=== PATIENT | female | born 1960 | race Caucasian/White ===

== ENCOUNTER 2018-12-01 21:30 | Emergency (ER) | payer MEDICAID ==
[2018-12-01] MEDS ORDERED: Sodium Chloride 0.9% 1,000 ML IV ONE (22:30)
--- NOTE | 2018-12-01 22:37 | ED PDOC ---
HPI: Skin/Bite Injury Time Seen by Provider: 12/01/18 21:57 Chief Complaint (Nursing): Abnormal Skin Integrity Chief Complaint (Provider): Facial Swelling, Congestion History Per: Patient History/Exam Limitations: no limitations Onset/Duration Of Symptoms: Hrs (left sided facial swelling since this AM), Days (congestion since 11/29/18) Current Symptoms Are (Timing): Still Present Quality Of Symptoms: Painful, Swollen Severity: Moderate Additional Complaint(s): Patient is a 57 year old female who presents to the ED for evaluation of nasal congestion since 11/29/18, and left sided facial swelling since this mo rning upon waking. Patient reports that the swelling has worsened throughout the day and is rated 9/10, localized. Patient denies any other symptoms. Patient last took Tylenol 3 hours ago. Patient also notes that she is currently on an unknown antibiotic x3 days for a UTI. Denies fevers, chills, SOB, cough, ear pain, throat pain, headache, dizziness, neck pain/stiffness, recent dental work. PMD: unknown Tetanus: unknown Past Medical History Reviewed: Historical Data, Nursing Documentation, Vital Signs Vital Signs: Last Vital Signs Temp 99.6 F 12/01/18 21:53 Pulse 60 12/01/18 21:53 Resp 16 12/01/18 21:53 BP 115/69 12/01/18 21:53 Pulse Ox 96 12/01/18 21:53 - Medical History PMH: No Chronic Diseases - Surgical History Other surgeries: Breast Implants - Family History Family History: States: Unknown Family Hx - Social History Current smoker - smoking cessation education provided: No Alcohol: None Drugs: Denies - Immunization History Hx Tetanus Toxoid Vaccination: No - Allergies Allergies/Adverse Reactions: Allergies Allergy/AdvReac Type Severity Reaction Status Date / Time No Known Allergies Allergy Verified 12/01/18 21:55 Review of Systems ROS Statement: Except As Marked, All Systems Reviewed And Found Negative Constitutional: Positive for: Other (left sided facial swelling) ENT: Positive for: Nose Congestion Physical Exam - Reviewed Nursing Documentation Reviewed: Yes Vital Signs Reviewed: Yes - Physical Exam Comments: GENERALIZED APPEARANCE: Patient is awake, alert, oriented x3 in no acute distress. Uncomfortable appearing. VITAL SIGNS: Per nurse's note, reviewed by me. SKIN: Warm, dry; (-) cyanosis.(+)7cm x 7cm area of warmth, swelling, tenderness and erythema of left cheek/maxilla extending to the angle of the mandible. (-) fluctuance, (+) induration EYES: (-) conjunctival injection (+) left infraorbital tenderness. EOMI and painless. Pupils equal and reactive. (-) crusting (-) hyphema (-) chemosis ENMT: Mucous membranes moist. Airway patent, (-) stridor. Dentition nontender. Pharynx: clear, uvula midline (-) erythema. NECK:Supple, FROM (-) tenderness, (-) stiffness. CHEST AND RESPIRATORY: (-) rales, (-) rhonchi, (-) wheezes; breath sounds equal bilaterally. Respirations even and nonlabored. HEART AND CARDIOVASCULAR: (-)irregularity NEURO AND PSYCH: Mental status as above; (-) focal findings. Gait: steady. Speech: clear. (-) aphasia. Normal cognition. - Laboratory Results Result Diagrams: 12/01/18 22:45 12/01/18 22:45 - ECG O2 Sat by Pulse Oximetry: 96 (RA) Pulse Ox Interpretation: Normal Medical Decision Making Medical Decision Makin Initial Impression: facial cellulitis, r/o abscess Plan: -IV access -CBC -CMP -Blood culture x2 -Toradol IVP -Rocephin 1gm IVPB -Maxillofacial CT with contrast -Tetanus IM -1L NS bolus IV -Re-evaluation [address] scan[address] Labs reviewed, no leukocytosis. Mild hypercalcemia noted, patient made aware. Patient reports she was recently referred to an video conference specialist to address her calcium levels but has not followed up yet. 2355 Case endorsed to Ciara Pantoja PA-C pending CT results and further disposition. Pertinent details reviewed. Disposition - Clinical Impression Clinical Impression: Facial cellulitis, Hypercalcemia - Patient ED Disposition Is Patient to be Admitted: Transfer of Care (Case endorsed to Ciara Pantoja PA-C pending CT results and further disposition) - Disposition Disposition: Transfer of Care (Case endorsed to Ciara Pantoja PA-C pending CT results and further disposition) Disposition Time: 23:59 Condition: STABLE Print Language: LITHUANIAN - POA Present On Arrival: None Results - Lab Results Lab Results: 12/01/18 12/01/18 22:45 22:45 WBC 8.3 RBC 3.98 Hgb 12.8 Hct 38.9 MCV 97.7 MCH 32.2 H MCHC 32.9 L RDW 12.1 Plt Count 211 MPV 8.5 Neut % (Auto) 69.1 Lymph % (Auto) 22.8 Elmore % (Auto) 7.3 Eos % (Auto) 0.4 Baso % (Auto) 0.4 Neut # (Auto) 5.7 Lymph # (Auto) 1.9 Elmore # (Auto) 0.6 Eos # (Auto) 0.0 Baso # (Auto) 0.0 Sodium 140 Potassium 3.7 Chloride 103 Carbon Dioxide 32 H Anion Gap 9 L BUN 10 Creatinine 0.6 L Est GFR ( Amer) > 60 Est GFR (Non-Af Amer) > 60 Random Glucose 101 Calcium 11.1 H Total Bilirubin 0.3 AST 34 ALT 29 Alkaline Phosphatase 79 Total Protein 7.5 Albumin 4.2 Globulin 3.3 Albumin/Globulin Ratio 1.3
[2018-12-01] MEDS ORDERED: cefTRIAXone (Rocephin) 1 gm Inj ONE (23:03)
[2018-12-01 23:05] LABS: BASO % 0.4 % (0.0-2.0); EOS % 0.4 % (0.0-4.0); HEMOGLOBIN 12.8 g/dL (12.0-16.0); LYMPH # 1.9 K/uL (1.0-4.3); LYMPH % 22.8 % (20.0-40.0); MEAN CELL VOLUME 97.7 fl (81.0-99.0); MEAN CORPUSCULAR HEMOGLOBIN 32.2 pg (27.0-31.0); MEAN CORPUSCULAR HGB CONC 32.9 g/dL (33.0-37.0); MEAN PLATELET VOLUME 8.5 fl (7.2-11.7); MONO # 0.6 K/uL (0.0-0.8); MONO % 7.3 % (0.0-10.0); NEUT # 5.7 K/uL (1.8-7.0); NEUT % 69.1 % (50.0-75.0); RBC 3.98 Mil/uL (3.80-5.20); RED CELL DISTRIBUTION WIDTH 12.1 % (11.5-14.5); WHITE BLOOD COUNT 8.3 K/uL (4.8-10.8)
[2018-12-01 23:17] LABS: ALB/GLOB RATIO 1.3 (1.0-2.1); ALBUMIN 4.2 g/dL (3.5-5.0); ALT/SGPT 29 U/L (9-52); AST/SGOT 34 U/L (14-36); BLOOD UREA NITROGEN 10 mg/dl (7-17); CALCIUM 11.1 mg/dL (8.4-10.2); GFR NON-AFRICAN AMERICAN > 60
[2018-12-01] MEDS ORDERED: Iohexol 300 100 ML IJ ONE (23:22)
[2018-12-01] MEDS ORDERED: Sodium Chloride 0.9% 50 ML IV ONE (23:22)
[2018-12-02] MEDS ORDERED: Clindamycin 600mg/50ml D5W 600 MG/50 ML VIAL IVPB STA (00:17)
--- NOTE | 2018-12-02 00:35 | ED PDOC ---
- Laboratory Results Result Diagrams: 12/01/18 22:45 12/01/18 22:45 Lab Results: Total Bilirubin 0.3 mg/dl (0.2-1.3) 12/01/18 22:45 AST 34 U/L (14-36) 12/01/18 22:45 ALT 29 U/L (9-52) 12/01/18 22:45 Alkaline Phosphatase 79 U/L (38-126) 12/01/18 22:45 Total Protein 7.5 G/DL (6.3-8.2) 12/01/18 22:45 Albumin 4.2 g/dL (3.5-5.0) 12/01/18 22:45 Globulin 3.3 gm/dL (2.2-3.9) 12/01/18 22:45 Albumin/Globulin Ratio 1.3 (1.0-2.1) 12/01/18 22:45 - ECG O2 Sat by Pulse Oximetry: 96 (RA) - Progress ED Course And Treament: Case endorsed to quality analyst/technical writer from [facility] pending CT EXAM: CT Maxillofacial with Intravenous Contrast. CLINICAL HISTORY: Left sided facial cellulitis r/o abscess TECHNIQUE: Axial computed tomography images of the face with intravenous contrast. Sagittal and coronal reformatted images were generated. 751.22 mGy-cm CONTRAST: With; [id number] COMPARISON: None provided. FINDINGS: BONES: No evidence for acute fracture in the visualized facial bones and portions of the calvarium. SOFT TISSUES: There is soft tissue thickening and fatty stranding at the left maxillary, left infraorbital and to a lesser extent the inferior aspect of left periorbital region. This is compatible with the given history of left-sided facial cellulitis. No abscess is identified currently, as clinically questioned. SINUSES: There is mucosal thickening of bilateral maxillary sinuses. There is scattered mucosal thickening of multiple ethmoid air cells. ORBITS: The orbits are normal. No retrobulbar hematoma or mass. MISCELLANEOUS: No evidence for post-septal cellulitis. Visualized intracranial contents appear grossly unremarkable. Normally aerated mastoid air cells. IMPRESSION: 1. There is soft tissue thickening and fatty stranding at the left maxillary, left infraorbital and to a lesser extent the inferior aspect of left periorbital region. This is compatible with the given history of left-sided facial ce llulitis. No abscess is identified currently, as clinically questioned. 2. No evidence for post-septal cellulitis. 3. There is mucosal thickening of bilateral maxillary sinuses. There is scattered mucosal thickening of multiple ethmoid air cells. 4. Visualized intracranial contents appear grossly unremarkable. 5. No evidence for acute fracture in the visualized facial bones and portions of the calvarium. 6. Normally aerated mastoid air cells Patient educated on findings and need for admission for IV antibiotics. Patient states she cannot stay in the hospital. Patient advised she will need to sign out against medical advice, and risks of doing so Patient awake, alert, oriented x 3; demonstrates full competency in making medical decisions Advised follow up PMD within 2 days. Rx Clindamycin provided Strict return precautions given Disposition - Clinical Impression Clinical Impression: Facial cellulitis, Hypercalcemia, Left against medical advice - POA Present On Arrival: None - Disposition Referrals: [facility] [Outside] Disposition: AGAINST MEDICAL ADVICE Disposition Time: 02:05 Condition: FAIR Prescriptions: Clindamycin [Cleocin] 300 mg PO QID #40 cap Instructions: Cellulitis and Erysipelas (Skin Infections), Leaving Against Medical Advice Print Language: DIVEHI Against Medical Advice - AMA Patient Left Against Medical Advice: The patient declines admission to the hospital and wishes to leave the Emergency Department. This action is against my medical advice. This decision was made with informed refusal. The patient was told that admission to the hospital is necessary. Explanation of the reasons why were discussed. The risks of leaving were explained to the patient and include, but are not limited to, worsening of known or currently unknown conditions, permanent disability and from undiagnosed or untreated conditions. The patient has the capacity to make this informed decision and understands my explanation of the current medical problem and risks of leaving. The patient voluntarily accepts these risks and signed an AMA form documenting our conversation. The patient was given the opportunity to ask questions and reconsider. The patient was encouraged to return to the Emergency Department at any time for further care.
[2018-12-02 02:04] VITALS: BP 104/60; PULSE 64; RESP 18; TEMP 98.1
[2018-12-02 02:07] VITALS: O2SAT 96
--- NOTE | 2018-12-02 10:54 | CT ---
Date of service: 12/01/2018 PROCEDURE: CT MAXILLOFACIAL BONES WITH CONTRAST HISTORY: left sided facial cellulitis r/o abscess COMPARISON: None. TECHNIQUE: Contiguous axial CT images of the maxillofacial bones were obtained following administration of IV contrast. Coronal and sagittal reformats were generated. Intravenous contrast Dose: 85 mL Omnipaque 300 Radiation dose: Total exam DLP = 751.22 mGy-cm. This CT exam was performed using one or more of the following dose reduction techniques: Automated exposure control, adjustment of the mA and/or kV according to patient size, and/or use of iterative reconstruction technique. FINDINGS: NASAL BONES: The nasal bones are intact. ORBITS: The globes are symmetric. There is mild left infraorbital soft tissue swelling. No evidence for subperiosteal abscess. No postseptal cellulitis. PARANASAL SINUSES/ MASTOIDS: There is mild mucosal thickening in the inferior frontal sinuses, scattered mucosal thickening in the ethmoid air cells and moderate polypoid mucosal thickening in the maxillary sinuses with retention cyst/polyp in the left maxillary sinus. MAXILLA: No acute fracture or bone destruction. No evidence for bone erosion. There is moderate diffuse left facial soft tissue swelling with subcutaneous fat stranding and enhancing soft tissue which is most conspicuous in the infraorbital and pre maxillary soft tissues. No drainable abscess or fluid collection. MANDIBLE/ TEMPOROMANDIBULAR JOINTS: Unremarkable. SKULL BASE: Unremarkable. TEMPORAL BONES: Middle ears and mastoid grossly unremarkable. OTHER FINDINGS: None. IMPRESSION: 1. Left facial cellulitis most conspicuous in the left infraorbital and pre maxillary soft tissues. No evidence of abscess or drainable fluid collection. 2. Mild chronic ethmoid and maxillary sinusitis, worse in the left maxillary sinus. A preliminary report was provided by [employer].
== END 2018-12-02 02:28 | disposition left against medical advice (07) ==
LOC: H.ER 21:30
DX: L03.211 Cellulitis of face (principal); R73.9 Hyperglycemia, unspecified; J32.0 Chronic maxillary sinusitis; J32.2 Chronic ethmoidal sinusitis
CPT/HCPCS: 70488; 80053; 85025; 87040; 99283; Q9967